=== PATIENT | female | born 1975 | race Caucasian/White ===

== ENCOUNTER 2017-03-17 14:04 | Emergency (ER) | payer OTHER ==
[2017-03-17] MEDS ORDERED: Ondansetron INJ* 2 MG/ML VIAL IV ONE (17:30)
[2017-03-17] MEDS ORDERED: NS 0.9% 1000 ML* 2,000 ML IV ONE (17:30)
[2017-03-17 17:42] LABS: Hematocrit 45 % (35-47); Hemoglobin 15.2 g/dl (12.0-16.0); Mean Corpuscular HGB Conc 34 g/dl (31-36); Mean Corpuscular Hemoglobin 30 pg (27-31); Mean Corpuscular Volume 88 fL (80-97); Mean Platelet Volume 9 um3 (7.4-10.4); Red Blood Count 5.15 10^6/ul (4.0-5.4); Red Cell Distribution Width 13 % (10.5-15)
[2017-03-17 17:57] LABS: ALT 12 U/L (7-52); AST 17 U/L (13-39); Alkaline Phosphatase 46 U/L (34-104); Anion Gap 6 mmol/L (2-11); Blood Urea Nitrogen 7 mg/dL (6-24); C Reactive Protein 2.09 mg/L (< 5.00); CO2 Carbon Dioxide 28 mmol/L (22-32); Calcium 10.1 mg/dL (8.6-10.3); Chloride 100 mmol/L (101-111); Creatine Kinase 65 U/L (10-223); EGFR African American 119.8 (>60); EGFR Non-African American 93.2 (>60); Globulin 3.7 g/dL (2-4); Glucose 104 mg/dL (70-100); Lipase 24 U/L (11.0-82.0); Potassium 4.1 mmol/L (3.5-5.0); Sodium 134 mmol/L (133-145); Total Protein 8.7 g/dL (6.4-8.9)
--- NOTE | 2017-03-17 18:05 | RAD ---
HISTORY: Dizziness, blood pressure COMPARISONS: None VIEWS:1: Single frontal portable view of the chest at 5:55 PM FINDINGS: LINES AND TUBES: None. CARDIOMEDIASTINAL SILHOUETTE: The cardiomediastinal silhouette is normal for portable technique. PLEURA: The costophrenic angles are sharp. No pleural abnormalities are noted. LUNG PARENCHYMA: The lungs are clear. ABDOMEN: The upper abdomen is clear. There is no subphrenic gas. BONES AND SOFT TISSUES: No bone or soft tissue abnormalities are noted. IMPRESSION: NO ACTIVE CARDIOPULMONARY DISEASE.
[2017-03-17 18:28] LABS: TSH (Thyroid Stimulating Horm) 3.06 mcIU/mL (0.34-5.60)
[2017-03-17] MEDS ORDERED: Magnesium CITRATE* 300 ML BTL PO ONE (19:02)
[2017-03-17] MEDS ORDERED: Omeprazole CAP* 20 MG PO ONE (19:17)
--- NOTE | 2017-03-17 19:18 | ED ---
Cara Castillo Anna, scribed for Joey Russ MD on 03/17/17 at 1722 . GI/ HPI - HPI Summary HPI Summary: Patient is a 41 y/o female coming to [facility] presenting with intermittent RLQ abdominal pain that began two days ago. She had a fever that began three days ago. She has additionally had constipation, nausea, palpitations, decreased appetite, lightheadedness, dizziness, resolved sore throat, and blood in her stool. She experienced LOC in the bathroom once accompanied by abdominal pain. This was spontaneously resolved. Her BP is low at baseline. She took Tylenol two days ago for her fever, which has since resolved. She has been able to drink lots of fluids. The pain is not exacerbated by eating. Last night, she couldnt sleep lying down. The pain was somewhat alleviated by standing up. The blood in her stool began 3-4 days ago. She noticed this when she was wiping, and it was accompanied by anal pain. She says it feels like a hermorrhoid. Denies dysuria or vaginal discharge. Denies Hx colitis, pregnancies, abd surgeries, ovarian cysts. She had similar symptoms in January, but at that time it only lasted one day. Other than that instance, she does not have chronic abdominal problems. - History of Current Complaint Chief Complaint: EDGeneral Time Seen by Provider: 03/17/17 17:06 Stated Complaint: DIZZY/HIGH BLOOD PRESSURE Hx Obtained From: Patient Onset/Duration: Started Days Ago, Still Present Timing: Intermittent Severity: Moderate Current Severity: Moderate Location of Pain: RLQ Associated Signs and Symptoms: Positive: Syncope, Nausea, Constipation, Blood w/ Stool, Fever, Abdominal Pain. Negative: Discharge, Hematuria - Allergy/Home Medications Allergies/Adverse Reactions: Allergies Allergy/AdvReac Type Severity Reaction Status Date / Time Sulfa Antibiotics Allergy Rash Verified 03/17/17 17:41 PMH/Surg Hx/FS Hx/Imm Hx GI History: Denies: Hx Crohn's Disease Sensory History: Denies: Hx Deafness Opthamlomology History: Denies: Hx Legally Blind Infectious Disease History: No Infectious Disease History: Denies: Traveled Outside the [place] in Last 30 Days - Family History Known Family History: Positive: Other - Hx aneurysm in father and aunt - Social History Occupation: Employed Full-time Alcohol Use: None Substance Use Type: Reports: None Smoking Status (MU): Never Smoked Tobacco Review of Systems Positive: Fever, Other - decreased appetite Positive: Sore Throat - resolved Positive: Palpitations Gastrointestinal: Other - constipation, hematochezia Positive: Abdominal Pain, Nausea Negative: dysuria, discharge Neurological: Other - dizziness, lightheadedness Positive: Syncope All Other Systems Reviewed And Are Negative: Yes Physical Exam Triage Information Reviewed: Yes Vital Signs On Initial Exam: Initial Vitals Temp Pulse Resp BP Pulse Ox 98.5 F 101 18 140/87 100 03/17/17 14:41 03/17/17 14:41 03/17/17 14:41 03/17/17 14:41 03/17/17 14:41 Vital Signs Reviewed: Yes Appearance: Positive: Well-Appearing, No Pain Distress Skin: Positive: Warm, Skin Color Reflects Adequate Perfusion, Dry Head/Face: Positive: Normal Head/Face Inspection Eyes: Positive: EOMI, [place] ENT: Positive: Normal ENT inspection Neck: Positive: Supple, Nontender Respiratory/Lung Sounds: Positive: Clear to Auscultation, Breath Sounds Present Cardiovascular: Positive: RRR Abdomen Description: Positive: Nontender, Soft Bowel Sounds: Positive: Present Musculoskeletal: Positive: Normal, Strength/ROM Intact Neurological: Positive: Normal, Sensory/Motor Intact, Alert, Oriented to Person Place, Time Psychiatric: Positive: Affect/Mood Appropriate Diagnostics - Vital Signs Vital Signs Temp Pulse Resp BP Pulse Ox 03/17/17 16:33 98.5 F 80 15 132/79 100 03/17/17 15:39 80 15 132/79 100 03/17/17 14:41 98.5 F 101 18 140/87 100 - Laboratory Lab Results: Lab Results 03/17/17 03/17/17 Range/Units 17:30 17:30 WBC 6.0 (3.5-10.8) 10^3/ul RBC 5.15 (4.0-5.4) 10^6/ul Hgb 15.2 (12.0-16.0) g/dl Hct 45 (35-47) % MCV 88 (80-97) fL MCH 30 (27-31) pg MCHC 34 (31-36) g/dl RDW 13 (10.5-15) % Plt Count 245 (150-450) 10^3/ul MPV 9 (7.4-10.4) um3 Neut % (Auto) 77.0 (38-83) % Lymph % (Auto) 18.2 L (25-47) % [place] % (Auto) 4.1 (1-9) % Eos % (Auto) 0 (0-6) % Baso % (Auto) 0.7 (0-2) % Absolute Neuts (auto) 4.6 (1.5-7.7) 10^3/ul Absolute Lymphs (auto) 1.1 (1.0-4.8) 10^3/ul Absolute Monos (auto) 0.2 (0-0.8) 10^3/ul Absolute Eos (auto) 0 (0-0.6) 10^3/ul Absolute Basos (auto) 0 (0-0.2) 10^3/ul Absolute Nucleated RBC 0.01 10^3/ul Nucleated RBC % 0.2 Sodium 134 (133-145) mmol/L Potassium 4.1 (3.5-5.0) mmol/L Chloride 100 L (101-111) mmol/L Carbon Dioxide 28 (22-32) mmol/L Anion Gap 6 (2-11) mmol/L BUN 7 (6-24) mg/dL Creatinine 0.70 (0.51-0.95) mg/dL Est GFR ( Amer) 119.8 (>60) Est GFR (Non-Af Amer) 93.2 (>60) BUN/Creatinine Ratio 10.0 (8-20) Glucose 104 H (70-100) mg/dL Calcium 10.1 (8.6-10.3) mg/dL Total Bilirubin 0.40 (0.2-1.0) mg/dL AST 17 (13-39) U/L ALT 12 (7-52) U/L Alkaline Phosphatase 46 (34-104) U/L Total Creatine Kinase 65 (10-223) U/L CK-MB (CK-2) 0.8 (0.6-6.3) ng/mL Troponin I 0.00 (<0.04) ng/mL C-Reactive Protein 2.09 (< 5.00) mg/L Total Protein 8.7 (6.4-8.9) g/dL Albumin 5.0 (3.2-5.2) g/dL Globulin 3.7 (2-4) g/dL Albumin/Globulin Ratio 1.4 (1-3) Lipase 24 (11.0-82.0) U/L TSH 3.06 (0.34-5.60) mcIU/mL Beta HCG, Quant < 0.60 mIU/mL Result Diagrams: 03/17/17 17:30 03/17/17 17:30 Lab Statement: Any lab studies that have been ordered have been reviewed, and results considered in the medical decision making process. - Radiology CXR Xray Interpretation: Positive (See Comments) Radiology Interpretation Completed By: Radiologist - IMPRESSION: NO ACTIVE CARDIOPULMONARY DISEASE. GIGU Course/Dx - Course Course Of Treatment: NO CRITICAL CARE TIME. Assessment/Plan: ABDOMINAL PAIN MINIMAL. ABD NON TENDER ON EXAM. DISCUSSED RESULTS WITH PATIENT. WILL DISCHARGE HOME WITH [facility]. F/U WITH DR BHAKTA. DISCHARGE HOME STABLE. - Diagnoses Provider Diagnoses: Palpitations, Near syncope, Constipation, Abdominal pain Discharge - Discharge Plan Condition: Stable Disposition: HOME Prescriptions: Omeprazole CAP* [Prilosec CAP* 20 MG] 20 mg PO BID #30 cap. Patient Education Materials: Palpitations (ED), Near Syncope (ED), Constipation (ED), Acute Abdominal Pain (ED) Referrals: Non Staff,Doctor [Primary Care Provider] - Faith Bhakta MD [Medical Doctor] - Additional Instructions: FOLLOW UP WITH DR BHAKTA. CALL HER TOMORROW FOR FOLLOW UP. RETURN TO THE EMERGENCY DEPARTMENT FOR ANY WORSENING OF YOUR CONDITION; PAIN, FEVER, YOU FEEL ILL, YOU FEEL LIKE PASSING OUT OR QUESTIONS OR CONCERNS. The documentation as recorded by the Cara kemp Anna accurately reflects the service I personally performed and the decisions made by me, Joey Russ MD.
[2017-03-17 19:33] VITALS: BP 132/74
== END 2017-03-17 19:31 | disposition home or self-care (01) ==
LOC: ED 14:04
DX: R00.2 Palpitations (principal); R10.31 Right lower quadrant pain; R55 Syncope and collapse; R11.0 Nausea; K59.00 Constipation, unspecified; K92.1 Melena; R50.9 Fever, unspecified
CPT/HCPCS: 36415; 71010; 80053; 82550; 82553; 83690; 84443; 84484; 84702; 85025; 86140; 93005; 96374; 99283; A9270-GY; J2405